=== PATIENT | female | born 2000 | race Caucasian/White ===

== ENCOUNTER → 2023-02-14 11:05 | Outpatient (BNVA) | payer SELFPAY | PROVIDERS: Visit Provider Family Medicine | DX: F43.10 Post-traumatic stress disorder, unspecified (principal); N39.0 Urinary tract infection, site not specified; Z91.89 Other specified personal risk factors, not elsewhere classified; K58.9 Irritable bowel syndrome, unspecified | CPT/HCPCS: 81003; 86592; 86705; 86706; 86709; 86803; 87340; 87491; 87591; 87806 ==